=== PATIENT | male | born 1965 | race Caucasian/White ===

== ENCOUNTER 2017-07-28 20:23 | Emergency (ER) | payer BC ==
[~2017-07-28] VITALS: Ht 182.9 cm; Wt 93.0 kg
[2017-07-28 20:33] VITALS: Ht 182.9 cm; Wt 93.0 kg
[2017-07-28 23:28] VITALS: BP 107/72
== END 2017-07-28 23:28 | disposition home or self-care (01) ==
LOC: ED 20:23
DX: S09.90XA Unspecified injury of head, initial encounter (principal); I10 Essential (primary) hypertension; X58.XXXA Exposure to other specified factors, initial encounter; Y93.89 Activity, other specified; Y92.89 Other specified places as the place of occurrence of the external cause; Y99.8 Other external cause status
CPT/HCPCS: 82962; J1885; J7030

== ENCOUNTER 2018-05-07 23:31 | Emergency (ER) | payer BC ==
[~2018-05-07] VITALS: Ht 175.3 cm; Wt 107.5 kg
[2018-05-07 23:42] VITALS: Ht 175.3 cm; Wt 107.5 kg
[2018-05-08 02:10] VITALS: BP 128/73
== END 2018-05-08 02:10 | disposition home or self-care (01) ==
LOC: ED 23:31
DX: H16.8 Other keratitis (principal); I10 Essential (primary) hypertension; E78.00 Pure hypercholesterolemia, unspecified